=== PATIENT | male | born 1955 | race Caucasian/White ===

== ENCOUNTER → 2017-02-04 | Day surgery (SDC) | payer MEDICAID ==
[~2017-02-04] MED LIST: Acetaminophen/HYDROcodone 325-5 MG Tab PO ONE; Albuterol 0.083% 2.5 MG/3 ML Neb Soln NEB PRN; Bupivacaine 0.5%/EPINEPHrine 1:200,000 50 ML MDV ONE; Dexamethasone 4 MG/ML 5 ML MDV ONE; HYDROmorphone 0.5 MG/0.5 ML Syringe IVPUSH PRN; HYDROmorphone 1 MG/ML Syringe ONE; Ketamine 500 mg/10 ML MDV ONE; Ketorolac 30 MG/ML SDV ONE; Lactated Ringers 1,000 ML IV SCH; Lactated Ringers 1,000 ML ONE; Lidocaine 1% 6 ML ONE; Lidocaine 1%/Sod Bicarbonate in NS 8.4% 1 ML Syringe IV PRN; Midazolam 1 MG/ML 2 ML SDV ONE; Ondansetron 4 MG/2 ML SDV IVPUSH PRN; Ondansetron 4 MG/2 ML SDV ONE; Propofol 200 MG/20 ML SDV ONE; Rocuronium 50 MG/5 ML Vial ONE; Sodium Chloride 0.9% 10 ML Syringe FLUSH PRN; ceFAZolin 1 GM Vial ONE; fentaNYL 100 MCG/2 ML SDV IVPUSH PRN; fentaNYL 250 MCG/5 ML SDV ONE
--- NOTE | 2017-02-04 09:25 | PCM.PREANE ---
Preanesthetic Assessment - Procedure Proposed Procedure: Umbilical Hernia Repair with mesh - Anesthesia/Transfusion/Family Hx Anesthesia History: Prior Anesthesia Without Reaction Family History of Anesthesia Reaction: No - Review of Systems General: Appetite (decreased appetite over last year since pt had to stop working), Other (decreased energy over last year since pt had to stop working) Pulmonary: No Symptoms Cardiovascular: No Symptoms Gastrointestinal: No symptoms, Decreased appetite (decreased appetite over last year since pt had to stop working) Neurological: No Symptoms Other: Reports: None - Physical Assessment NPO Status Date: 02/03/17 NPO Status Time: 19:30 O2 Sat by Pulse Oximetry: 94 Respiratory Rate: 16 Vital Signs: Last Vital Signs Temp 36.4 C 02/04/17 08:25 Pulse 74 02/04/17 08:25 Resp 16 02/04/17 08:25 BP 136/83 02/04/17 08:25 Pulse Ox 94 L 02/04/17 08:25 Height: 1.78 m Weight: 83.915 kg ASA Class: 3 Mental Status: Alert & Oriented x3 Airway Class: Mallampati = 2 Dentition: Reports: Missing Tooth/Teeth (missing all molars. ) Thyro-Mental Finger Breadths: 3 Mouth Opening Finger Breadths: 3 ROM/Head Extension: Full Lungs: Normal respiratory effort, Wheezing (end-expiratory) Cardiovascular: Regular Rate, Regular Rhythm, No Murmurs - Lab Values: CMP from 01/13/17 essentially normal CBC from 12/02/16 also essentially normal MRSA neg - Allergies Allergies/Adverse Reactions: Allergies Allergy/AdvReac Type Severity Reaction Status Date / Time No Known Allergies Allergy Verified 02/03/17 15:49 - Blood Blood Available: No - Acknowledgements Anesthesia Type Planned: MAC Pt an Appropriate Candidate for the Planned Anesthesia: Yes Alternatives and Risks of Anesthesia Discussed w Pt/Guardian: Yes Pt/Guardian Understands and Agrees with Anesthesia Plan: Yes PreAnesthesia Questionnaire HEENT History: Reports: Impaired vision Cardiovascular History: Reports: High cholesterol, Hypertension Respiratory History: Reports: Bronchitis, recurrent, COPD (panlobular emphysema) , Other (see below) (HX pneumonia requiring hospitalization 2009) Gastrointestinal History: Reports: Other (see below) Other Gastrointestinal History: umbilical hernia Genitourinary History: Reports: None HELP DESK REPRESENTATIVE History: Reports: None Musculoskeletal History: Reports: None Neurological History: Reports: None Psychiatric History: Reports: None Endocrine/Metabolic History: Reports: None Hematologic History: Reports: None Immunologic History: Reports: None Oncologic (Cancer) History: Reports: None Dermatologic History: Reports: None - Past Surgical History Head Surgeries/Procedures: Reports: None HEENT Surgical History: Reports: Tonsillectomy (as child) GI Surgical History: Reports: Colonoscopy - SUBSTANCE USE Smoking Status *Q: Current Every Day Smoker (1/2 ppd down from 2 ppd) Tobacco Use Within Last Twelve Months: Cigarettes Second Hand Smoke Exposure: No Days Per Week of Alcohol Use: 7 Number of Drinks Per Day: 6 Total Drinks Per Week: 42 Recreational Drug Use History: No - HOME MEDS Home Medications: Home Meds Albuterol [Ventolin HFA] 1 - 2 puff INH Q4H PRN 02/03/17 [History] Cholecalciferol (Vitamin D3) [Vitamin D3] 2,000 unit PO DAILY 02/03/17 [History] Lisinopril 40 mg PO DAILY 02/03/17 [History] Mometasone/Formoterol [Dulera 200 MCG/5 MCG] 2 puff IN BID 02/03/17 [History] Tiotropium [Spiriva Handihaler] 1 puff INH DAILY 02/03/17 [History] Turmeric Root Extract [Turmeric] 500 mg PO DAILY 02/03/17 [History] Varenicline Tartrate [Chantix] 1 mg PO DAILY 02/03/17 [History] atorvaSTATin [Lipitor] 40 mg PO DAILY 02/03/17 [History] - CURRENT (IN HOUSE) MEDS Current Meds: Current Medications Lactated Ringer's (Ringers, Lactated) 1,000 mls @ 125 mls/hr IV ASDIRECTED LENNY Stop: 02/04/17 23:59 Last Admin: 02/04/17 08:45 Dose: 125 mls/hr Lidocaine/Sodium Bicarbonate (Buffered Lidocaine 1% In Ns 8.4%) 0.25 ml IV ONETIME PRN PRN Reason: Prior to IV Start Stop: 02/04/17 23:59 Last Admin: 02/04/17 08:45 Dose: 0.25 ml Sodium Chloride (Saline Flush) 10 ml FLUSH ASDIRECTED PRN PRN Reason: Keep Vein Open Stop: 02/04/17 23:59 Discontinued Medications Bupivacaine HCl/Epinephrine Bitart (Marcaine 0.5%/Epinephrine 1:200,000) Confirm Administered Dose 50 ml .ROUTE .STK-MED ONE Stop: 02/04/17 08:52 Cefazolin Sodium (Ancef) Confirm Administered Dose 2 gm .ROUTE .STK-MED ONE Stop: 02/04/17 07:10 Dexamethasone (Dexamethasone) Confirm Administered Dose 20 mg .ROUTE .STK-MED ONE Stop: 02/04/17 07:10 Fentanyl (Sublimaze) Confirm Administered Dose 250 mcg .ROUTE .STK-MED ONE Stop: 02/04/17 07:11 Hydromorphone HCl (Dilaudid) Confirm Administered Dose 1 mg .ROUTE .STK-MED ONE Stop: 02/04/17 07:10 Lidocaine HCl (Xylocaine-Mpf 1%) Confirm Administered Dose 6 mls @ as directed .ROUTE .STK-MED ONE Stop: 02/04/17 07:10 Lactated Ringer's (Ringers, Lactated) Confirm Administered Dose 1,000 mls @ as directed .ROUTE .ST-MED ONE Stop: 02/04/17 07:10 Ketamine HCl (Ketalar) Confirm Administered Dose 500 mg .ROUTE .STK-MED ONE Stop: 02/04/17 09:17 Ketorolac Tromethamine (Toradol) Confirm Administered Dose 30 mg .ROUTE .STK- MED ONE Stop: 02/04/17 07:10 Midazolam HCl (Versed 1 Mg/Ml) Confirm Administered Dose 2 mg .ROUTE .STK-MED ONE Stop: 02/04/17 07:10 Ondansetron HCl (Zofran) Confirm Administered Dose 4 mg .ROUTE .STK-MED ONE Stop: 02/04/17 07:10 Propofol (Diprivan 20 Ml) Confirm Administered Dose 200 mg .ROUTE .STK-MED ONE Stop: 02/04/17 07:10 Rocuronium [place] (Zemuron) Confirm Administered Dose 50 mg .ROUTE .STK-MED ONE Stop: 02/04/17 07:10 Preanesthetic Assessment - PHYSICAL ASSESSMENT O2 Sat by Pulse Oximetry: 94 RR: 16 Vital Signs: Last Vital Signs Temp 36.4 C 02/04/17 08:25 Pulse 74 02/04/17 08:25 Resp 16 02/04/17 08:25 BP 136/83 02/04/17 08:25 Pulse Ox 94 L 02/04/17 08:25 Height: 1.78 m Weight: 83.915 kg NPO Status Date: 02/03/17 NPO Status Time: 19:30 - ALLERGIES Allergies/Adverse Reactions: Allergies Allergy/AdvReac Type Severity Reaction Status Date / Time No Known Allergies Allergy Verified 02/03/17 15:49
--- NOTE | 2017-02-04 10:35 | PCM.OPNOTE ---
- General Post-Op/Procedure Note Date of Surgery/Procedure: 02/04/17 Operative Procedure(s): umbilical hernia repair with mesh Pre Op Diagnosis: umbilical hernia Post-Op Diagnosis: Same Anesthesia Technique: MAC Primary Surgeon: Gavin Tate EBCassandra in mLs: 1 Complications: None Condition: Good
--- NOTE | 2017-02-04 10:43 | PCM48HPAN ---
Post Anesthesia Note - EVALUATION WITHIN 48HRS OF ANESTHETIC Vital Signs in Normal Range: Yes Patient Participated in Evaluation: Yes Respiratory Function Stable: Yes Airway Patent: Yes Cardiovascular Function Stable: Yes Hydration Status Stable: Yes Pain Control Satisfactory: Yes Nausea and Vomiting Control Satisfactory: Yes Mental Status Recovered: Yes
--- NOTE | 2017-02-04 14:23 | OR ---
DATE OF OPERATION: 02/04/2017 SURGEON: Gavin Tate MD PREOPERATIVE DIAGNOSIS: Umbilical hernia. POSTOPERATIVE DIAGNOSIS: Umbilical hernia. OPERATION PERFORMED: Repair with mesh. FINDINGS: A 1.5 cm umbilical hernia repaired with a Ventralex ST hernia patch, reference #[id number], lot #[id number]. ANESTHESIA: Procedure done under IV sedation, 1% Xylocaine. DESCRIPTION OF PROCEDURE: The patient was taken to the operating room, placed in a supine position, connected to monitoring equipment, given IV sedation and antibiotics. The abdomen around the umbilicus was prepped with DuraPrep, draped off in a sterile fashion. New Xylocaine 1% epinephrine infiltrated in the skin around the umbilicus and the deeper tissues. A curvilinear incision was made just below the umbilicus and the umbilicus was then dissected off. The hernia site and the hernia was then inverted. The preperitoneal space was then developed. A Ventralex hernia patch was then inserted measuring about 3 cm. The edge of the hernia was then sutured to the mesh with a running 2-0 Vicryl suture and then the umbilicus was then sutured down to the fascia with interrupted 2-0 Vicryl suture and the subcuticular tissue closed with interrupted 2-0 Vicryl suture and the skin with subdermal 4-0 Dexon suture. Steri-Strips, sterile dressing placed. The patient tolerated the procedure. Estimated blood loss was less than 1 mL. Sterile dressing placed along with Steri-Strips and the patient sent to recovery room in a stable condition. ESTIMATED BLOOD LOSS: MMODAL /[id number]
[2017-02-04 15:40] VITALS: BP 122/67
== END | disposition home or self-care (01) ==
LOC: JD.SDS 08:19
PROVIDERS: ATTEND Surgery
DX: K42.9 Umbilical hernia without obstruction or gangrene (principal); I10 Essential (primary) hypertension; J44.9 Chronic obstructive pulmonary disease, unspecified; E78.5 Hyperlipidemia, unspecified; F17.200 Nicotine dependence, unspecified, uncomplicated; Z79.899 Other long term (current) drug therapy
CPT/HCPCS: 49585; A9270; C1781; J0690; J1100; J1170; J2250; J2405; J3010; J7120; 00750; J1885; J2704

== ENCOUNTER 2017-08-29 08:36 | Emergency (ER) | payer MEDICAID ==
[2017-08-29 08:53] VITALS: BP 168/89
--- NOTE | 2017-08-29 08:58 | CT ---
Head CT Technique: Multiple axial sections through the brain were obtained. Intravenous contrast was not utilized. Comparison: No prior study. Findings: Ventricles along with basal cisterns and sulci over the convexities are mildly prominent. Diminished density is noted within portions of the left basal ganglia compatible with old lacunar infarct as well as possible mild small vessel ischemic change. No other abnormal parenchymal densities are seen. No evidence of intracranial hemorrhage. Atherosclerotic calcification is seen within the vertebral vessels. Minimal atherosclerotic calcification is seen within the carotid siphon. Bone window settings were reviewed which shows no discrete calvarial abnormality. Visualized sinuses are clear. Impression: 1. Mild generalized atrophy and other senescent change. 2. Findings within the left basal ganglia which are felt compatible with old lacunar infarct as well as small vessel ischemic demyelination change. 3. No additional abnormality is appreciated. Diagnostic code #3
[2017-08-29] MEDS ORDERED: Ondansetron 4 MG/2 ML SDV IVPUSH ONE (09:01)
[2017-08-29] MEDS ORDERED: Ondansetron 4 MG/2 ML SDV ONE (09:06)
--- NOTE | 2017-08-29 09:06 | EDM.PDOC ---
ED HPI GENERAL MEDICAL PROBLEM - General Chief Complaint: Neuro Symptoms/Deficits Stated Complaint: [facility] Time Seen by Provider: 08/29/17 08:37 - History of Present Illness INITIAL COMMENTS - FREE TEXT/NARRATIVE: 61-year-old male brought into the emergency room by EMS with significant left- sided weakness. The patient awoke around 6 AM this morning with significant weakness on the left side make it extremely difficult for him to ambulate his left arm strength was noticed as well. By the time EMS arrived he was doing better and had regained some of the strength still had difficulty ambulating. At this point he complains of blurry vision in the left eye. Patient does not have a history of migraines no prior history of symptoms like this. Interestingly he just returned from a hunting trip and on that trip his stepdad had a stroke. The patient has not had any palpitations or chest pain. The patient is treated for COPD, hypertension, and hyperlipidemia. The patient smokes close to 2 packs a day. Left Headache Pain Score (Numeric/FACES): 10 - Related Data Allergies Allergy/AdvReac Type Severity Reaction Status Date / Time No Known Allergies Allergy Verified 08/29/17 08:45 Home Meds: Home Meds Albuterol [Ventolin HFA] 1 - 2 puff INH Q4H PRN 02/03/17 [History] Cholecalciferol (Vitamin D3) [Vitamin D3] 2,000 unit PO DAILY 02/03/17 [History] Lisinopril 40 mg PO DAILY 02/03/17 [History] Mometasone/Formoterol [Dulera 200 MCG/5 MCG] 2 puff IN BID 02/03/17 [History] Tiotropium [Spiriva Handihaler] 1 puff INH BEDTIME 02/03/17 [History] Turmeric Root Extract [Turmeric] 500 mg PO DAILY 02/03/17 [History] Varenicline Tartrate [Chantix] 1 mg PO DAILY 02/03/17 [History] atorvaSTATin [Lipitor] 40 mg PO BEDTIME 02/03/17 [History] Past Medical History HEENT History: Reports: Impaired Vision Cardiovascular History: Reports: High Cholesterol, Hypertension Respiratory History: Reports: Bronchitis, Recurrent, COPD, Other (See Below) Gastrointestinal History: Reports: Other (See Below) Other Gastrointestinal History: umbilical hernia Genitourinary History: Reports: None COMPUTER SYSTEMS HARDWARE ANALYST History: Reports: None Musculoskeletal History: Reports: None Neurological History: Reports: None Psychiatric History: Reports: None Endocrine/Metabolic History: Reports: None Hematologic History: Reports: None Immunologic History: Reports: None Oncologic (Cancer) History: Reports: None Dermatologic History: Reports: None - Past Surgical History Head Surgeries/Procedures: Reports: None HEENT Surgical History: Reports: Tonsillectomy (as child) GI Surgical History: Reports: Colonoscopy Social & Family History - Tobacco Use Smoking Status *Q: Current Every Day Smoker (1/2 ppd down from 2 ppd) Years of Tobacco use: 47 Packs/Tins Daily: 0.5 Second Hand Smoke Exposure: No - Alcohol Use Days Per Week of Alcohol Use: 7 Number of Drinks Per Day: 6 Total Drinks Per Week: 42 - Recreational Drug Use Recreational Drug Use: No Drug Use in Last 12 Months: No ED ROS GENERAL - Review of Systems Review Of Systems: See Below Constitutional: Denies: Fever, Chills HEENT: Reports: Vision Change. Denies: Hearing Loss Respiratory: Reports: No Symptoms Cardiovascular: Reports: No Symptoms GI/Abdominal: Reports: No Symptoms : Reports: No Symptoms Neurological: Reports: Headache, Difficulty Walking, Weakness. Denies: Change in Speech Psychiatric: Reports: No Symptoms Hematologic/Lymphatic: Reports: No Symptoms ED EXAM, NEURO - Physical Exam Exam: See Below Exam Limited By: No Limitations General Appearance: Alert, No Apparent Distress, Other (Upon arrival here he has no ulnar drift upper extremity weakness is not appreciated. However sitting he tends to lean a little to the left.) Eye Exam: Bilateral Eye: EOMI, Normal Inspection, PERRL Ears: Normal External Exam, Normal Canal, Hearing Grossly Normal, Normal TMs Nose: Normal Inspection, Normal Mucosa Throat/Mouth: Normal Inspection, Normal Lips, Normal Oropharynx, No Airway Compromise Head Exam: Atraumatic, Normocephalic, Other (No appreciated facial weakness) Neck: Normal Inspection, Supple, Non-Tender, Full Range of Motion. No: Lymphadenopathy (L), Lymphadenopathy (R) Respiratory/Chest: No Respiratory Distress, Lungs Clear, Normal Breath Sounds Cardiovascular: Regular Rate, Rhythm, No Edema, No Murmur GI/Abdominal: Normal Bowel Sounds, Soft, Non-Tender Neurological: Alert, Other (The patient was not ambulated here in the emergency department he appears to have regained a significant portion of his left lower extremity weakness left upper extremity weakness is basically back to baseline he still has some blurry vision out of his left eye) Back Exam: Normal Inspection. No: CVA Tenderness (L), CVA Tenderness (R) Extremities: Normal Inspection, No Pedal Edema Course - Vital Signs Last Recorded V/S: Last Vital Signs Temp 35.9 C 08/29/17 08:45 Pulse 72 08/29/17 08:45 Resp 15 08/29/17 08:45 BP 168/89 H 08/29/17 08:45 Pulse Ox 93 L 08/29/17 08:45 - Orders/Labs/Meds Orders: Active Orders 24 hr Category Date Time Status EKG Documentation Completion [RC] STAT Care 08/29/17 08:38 Active Labs: Laboratory Tests 08/29/17 08/29/17 08/29/17 Range/Units 08:55 08:55 08:55 WBC 13.16 H (4.23-9.07) K/mm3 RBC 4.41 L (4.63-6.08) M/mm3 Hgb 15.1 (13.7-17.5) gm/L Hct 44.5 (40.1-51.0) % MCV 100.9 H (79.0-92.2) fl MCH 34.2 H (25.7-32.2) pg MCHC 33.9 (32.2-35.5) g/dl RDW Std Deviation 43.4 (35.1-43.9) fL Plt Count 205 (163-337) K/mm3 MPV 10.6 (9.4-12.3) fl Neutrophils % (Manual) 81 H (40-60) % Band Neutrophils % 1 (0-10) % Lymphocytes % (Manual) 10 L (20-40) % Atypical Lymphs % 0 % Monocytes % (Manual) 8 (2-10) % Eosinophils % (Manual) 0 L (0.8-7.0) % Basophils % (Manual) 0 L (0.2-1.2) Platelet Estimate Adequate RBC Morph Comment Normal PT 10.4 (8.0-13.0) SECONDS INR 0.96 APTT 33 (22-36) SECONDS Sodium 140 (136-145) mEq/L Potassium 3.9 (3.5-5.1) mEq/L Chloride 103 (98-107) mEq/L Carbon Dioxide 27 (21-32) mEq/L Anion Gap 13.9 (5-15) BUN 10 (7-18) mg/dL Creatinine 1.0 (0.7-1.3) mg/dL Est Cr Clr Drug Dosing 82.13 mL/min Estimated GFR (MDRD) > 60 (>60) mL/min BUN/Creatinine Ratio 10.0 L (14-18) Glucose 151 H (74-106) mg/dL Calcium 9.6 (8.5-10.1) mg/dL Total Bilirubin 0.6 (0.2-1.0) mg/dL AST 17 (15-37) U/L ALT 22 (16-63) U/L Alkaline Phosphatase 83 (46-116) U/L Troponin I < 0.017 (0.00-0.056) ng/mL Total Protein 6.6 (6.4-8.2) g/dl Albumin 2.7 L (3.4-5.0) g/dl Globulin 3.9 gm/dL Albumin/Globulin Ratio 0.7 L (1-2) Meds: Medications Discontinued Medications Generic Name Dose Route Start Last Admin Trade Name Freq PRN Reason Stop Dose Admin Hydromorphone HCl 0.25 mg 08/29/17 09:23 08/29/17 09:38 Dilaudid IVPUSH 08/29/17 09:24 0.25 mg ONETIME ONE Administration Ondansetron HCl 4 mg 08/29/17 09:01 08/29/17 09:04 Zofran IVPUSH 08/29/17 09:02 4 mg ONETIME ONE Administration Ondansetron HCl Confirm 08/29/17 09:06 08/29/17 09:07 Zofran Administered 08/29/17 09:07 Not Given Dose 4 mg .ROUTE .STK-MED ONE - Re-Assessments/Exams Free Text/Narrative Re-Assessment/Exam: 08/29/17 11:58 Early the patient's course case was discussed with Dr. Jj neurologist at [facility] with the uncertainty of his onset time he is not a thrombolytic candidate. However the patient will be sent to [facility] for further evaluation and treatment. Head CT showed some generalized atrophy is fairly mild findings within the left basal ganglia suggestive of old lacunar infarct as well as small vessel ischemic demyelination changes. In the emergency department he was given Dilaudid 0.125 mg as he was having a significant headache he developed some nausea and was given Zofran. Case discussed with , hospitalist at [facility] who accepted the patient in transfer. I did review the patient's chest x-ray after arranging the transfer he has a left upper lobe mass. This information was relayed to by me this will need to be evaluated. Case was reviewed with our hospitalist as well. Departure - Departure Time of Disposition: 09:10 Disposition: DC/Tfer to Acute Hospital 02 Clinical Impression: CVA (cerebral vascular accident), TIA (transient ischemic attack) - Discharge Information Referrals: Jose Enrique Hu MD [Primary Care Provider] - Forms: ED Department Discharge - My Orders Last 24 Hours: My Active Orders 08/29/17 08:38 EKG Documentation Completion [RC] STAT - Assessment/Plan Last 24 Hours: My Active Orders 08/29/17 08:38 EKG Documentation Completion [RC] STAT
[2017-08-29] MEDS ORDERED: HYDROmorphone 1 MG/ML Syringe IVPUSH ONE (09:23)
--- NOTE | 2017-08-29 09:48 | CR ---
Chest: Portable view of the chest was obtained. Comparison: Previous chest x-ray of 03/14/16. Masslike density is noted within the right upper lung. Lungs otherwise are clear. Old healed bilateral rib fractures are seen. Prominent degenerative change is noted within the left shoulder. Heart size and mediastinum are within normal limits. Impression: 1. Masslike density within the right upper chest. This is an interval change from prior chest x-ray. Contrast-enhanced chest CT recommended to further evaluate as neoplasm is a possibility. 2. Other incidental findings as noted above. Diagnostic code #9
== END 2017-08-29 09:40 ==
LOC: JD.ED 08:36
DX: I63.9 Cerebral infarction, unspecified (principal); F17.210 Nicotine dependence, cigarettes, uncomplicated; Z79.899 Other long term (current) drug therapy
CPT/HCPCS: 36415; 70450; 71010; 80053; 84484; 85025; 85610; 85730; 93005; 96374; 96375; 99285; J1170; J2405